=== PATIENT | male | born 1975 | race Caucasian/White ===

== ENCOUNTER 2019-07-29 21:05 | Emergency (ER) | payer OTHER, SELFPAY ==
--- NOTE | ~2019-07-29 | XR_ITS ---
XR chest 2V DATE: 07/29/2019 22:47 INDICATION: Fall. Lower left anterior rib/chest pain TECHNIQUE: 2 views, PA and lateral projections COMPARISON: None FINDINGS: Normal heart size. No hilar or mediastinal enlargement. No pulmonary infiltrate or consolid ation, pleural effusion or pulmonary vascular congestion or pneumothorax. Included skeletal structures are unremarkable. IMPRESSION: No active cardiopulmonary disease Reviewed, dictated and finalized at [facility].
--- NOTE | ~2019-07-29 | CT_ITS ---
EXAMINATION: CT chst ab pel thor lum w DATE: 07/29/2019 22:46 INDICATION: Fall. Left flank pain. TECHNIQUE: Computed tomography (CT) of the chest, abdomen, and pelvis, and thoracic and lumbar spine was performed without intravenous contrast. Automated exposure control and iterative reconstruction t echnique were employed. Exam dose: 1479.41 mGy-cm total exam DLP. Thoracic and lumbar spine COMPARISON: 07/28/2021 view chest FINDINGS: CHEST CT: Normal heart size. Coronary artery calcification. No thoracic aortic aneurysm or dissection. No hilar or mediastinal mass lesion or lymphadenopathy. ABDOMEN/PELVIS CT: Status post cholecystectomy. 6 mm hypoattenuating hepatic dome indeterminate lesion, statistically most likely a cyst or hemangiom a. Multiple calcified splenic granulomas. The spleen measures 14 cm height, consistent with splenomeg jeff. No bile duct or pancreatic duct dilatation. No pancreatic mass lesion or calcification. Normal adrenal glands. No renal mass lesion or urinary tract calculus or hydroureteronephrosis. The urinary bladder and [place] gland are unremarkable. Normal caliber of the abdominal aorta. No intraperitoneal or retroperitoneal or pelvic mass lesion or adenopathy or ascites. Normal appendix. There is a prominent amount fecal material throughout the rectum and colon. No bowel obstruction, bowel wall thickening, pneumatosis or intraperitoneal free air.. THORACIC AND LUMBAR SPINE: There is mild degenerative spurring of the thoracic spine but no evidence of fracture or bone destruc tion or dislocation. There is a transitional lumbosacral vertebra. Mild degenerative change of the lumbar spine. No fracture, spondylolysis or spondylolisthesis of the lumbar spine. IMPRESSION: Status post cholecystectomy Indeterminate 6 mm hepatic dome hypoattenuating lesion Splenomegaly Coronary artery atherosclerosis Reviewed, dictated and finalized at [facility]. Reviewed, dictated and finalized at [facility].
[2019-07-29 21:06] VITALS: BP 145/83; PULSE 108; RESP 20; TEMP 36.5; O2SAT 100
--- NOTE | 2019-07-29 21:11 | ED.FALL ---
HPI - Fall General Chief Complaint: Fall Stated Complaint: fall, L flank pain Time Seen by Provider: 07/29/19 21:11 Source: patient and RN notes reviewed Mode of arrival: other Limitations: no limitations History of Present Illness HPI Narrative: Pt is a 44 y/o male who presents to the ED with c/o a fall that occurred earlier tonight after slipping in the shower. He states that his feet came right out from under him. He states that he stepped out of the shower to stabilize himself and his arm slipped off the wall. He notes that he hit his left side on a stool. Pt is unsure if he hit his head. Pt is able to ambulate. Pt reports left flank pain and pain with inspiration, but denies new numbness, back pain, neck pain, chest pain, syncope, hip pain, abdominal pain, fever, cough, chills, chest congestion, dyspnea, nausea, vomiting, and diarrhea. complaint: fall Onset (ago): hour(s) Fall from: standing Place fall occurred: home Loss of consciousness: none Prolonged down time: no Context: tripped/slipped Location of injury: other (left flank) Associated symptoms (after fall): other (left flank pain, pain with inspiration) Related Data Allergies Allergy/AdvReac Type Severity Reaction Status Date / Time Penicillins Allergy Unknown Verified 07/29/19 21:09 Review of Systems Review of Systems: Narrative: CONSTITUTIONAL: Denies fever and chills. CARDIOVASCULAR: Denies chest pain RESPIRATORY: Reports pain with inspiration. Denies cough, chest congestion, and dyspnea. GASTROINTESTINAL: Denies abdominal pain, nausea, vomiting, and diarrhea. GENITOURINARY: Reports left flank pain. MUSCULOSKELETAL: Denies back pain, neck pain, hip pain NEUROLOGIC: Denies new numbness and syncope. All systems reviewed & are unremarkable except as noted in HPI and below PMFSH Past Medical History Medical History (Updated 07/29/19 @ 23:33 by Teagan Brasher MD) Peripheral neuropathy Surgical History Surgical History (Updated 07/29/19 @ 23:33 by Mary Chester) Hx of cholecystectomy Social History Social History (Updated 07/29/19 @ 21:24 by Mary Chester) Smoking packs per day: 2 Smoking cigarettes per day: 40.0 Smoking status: Smoker, status unknown Tobacco type: cigarettes Gender identity (if verbalized by the patient): Male Exam Narrative: Exam Narrative: CONSTITUTIONAL: Awake, alert, conversant HEAD: Normocephalic, atraumatic. EYES: EOMI, conjunctiva clear ENT: Nares patent. Mucous membranes moist. NECK: Full range of motion. No cervical spine tenderness. Full range of motion without deficit or pain. RESPIRATORY: No chest wall pain. No crepitus or ecchymosis. No respiratory distress, speaking in full sentences, no tachypnea HEART: Regular rate ABDOMEN: Non distended, non tender GENITOURINARY: Left flank tenderness which is reproducible to pain patient is experiencing. No ecchymoses, no hematoma. Thorax: No midline thoracic or lumbar pain EXTREMITIES: Normal range of motion. No edema SKIN: Warm, dry, no rash. NEUROLOGIC: No focal deficits. Alert and oriented x3. EOMs intact without nystagmus. No facial droop/asymmetry noted bilaterally. Grimace intact. Intact sensation in face. Hearing intact bilaterally. Shoulder shrug intact. Strength 5/5 bilateral upper extremities. Strength 5/5 bilateral lower extremities. Ambulatory with a narrow based steady gait, no ataxia. Course Course Emergency Course: Patient presented for evaluation of a ground-level fall, seems mechanical as the patient did report slipping in the bathroom. No prodromal symptoms such as lightheadedness, dizziness, chest pain or shortness of breath. Patient with reproducible left thoracic wall pain without ecchymoses, crepitus of the chest wall, or midline pain. No bruising. Patient is ambulatory with a normal base, steady gait, normal neurological exam. Patient is not anticoagulated, no vision changes, no cervical spine pain. CT to evaluate for the vertebrae an
[2019-07-29] MEDS: ONDANSETRON HCL ODT 4 MG TABLET PO (21:57)
[2019-07-29 22:18] VITALS: RESP 20; O2SAT 97
[2019-07-29 22:34] LABS: Estimated Glomerular Filt Rate > 60
[2019-07-29 23:20] VITALS: BP 117/78; PULSE 96; RESP 12; O2SAT 99
[2019-07-29 23:50] VITALS: BP 120/88; PULSE 88; RESP 17; O2SAT 97
== END 2019-07-29 23:50 | disposition home or self-care (01) ==
PROVIDERS: Emergency Provider Emergency Medicine
DX: S29.011A Strain of muscle and tendon of front wall of thorax, initial encounter (principal); G62.9 Polyneuropathy, unspecified; F17.210 Nicotine dependence, cigarettes, uncomplicated; K76.9 Liver disease, unspecified; R16.1 Splenomegaly, not elsewhere classified; I25.10 Atherosclerotic heart disease of native coronary artery without angina pectoris; W18.2XXA Fall in (into) shower or empty bathtub, initial encounter
CPT/HCPCS: 36415; 71046; 71260; 72129; 72132; 74177; 99284; A9270; Q9967